=== PATIENT | male | born 1965 | race Caucasian/White ===

== ENCOUNTER 2023-10-28 04:35 | Day surgery (SDC) | payer OTHER ==
[2023-09-27 11:20] VITALS: BMI 44.1
[2023-10-28] MEDS ORDERED: KETAMINE HCL 200 MG/20 ML VIAL ONE (13:18)
[2023-10-28 14:00] VITALS: TEMP 98.6
[2023-10-28 15:26] VITALS: BP 134/75; PULSE 88; RESP 24
== END 2023-10-28 14:30 | disposition home or self-care (01) ==
LOC: JASU-ENDO 04:35
PROVIDERS: ATTEND Internal Medicine Gastroenterology
PROC: 0DJD8ZZ Inspection of Lower Intestinal Tract, Via Natural or Artificial Opening Endoscopic (ICD-10-PCS; principal; 2023-10-28 11:30)
DX: Z12.11 Encounter for screening for malignant neoplasm of colon (principal); K57.30 Diverticulosis of large intestine without perforation or abscess without bleeding